=== PATIENT | female | born 1945 | race Caucasian/White ===

== ENCOUNTER 2016-09-21 08:08 | Emergency (ER) | payer MEDICARE ==
[~2016-09-21] VITALS: Ht 160 cm; Wt 46.0 kg
[2016-09-21] MEDS ORDERED: CHOL20002 PO (08:30)
[2016-09-21] MEDS ORDERED: OMEP-110 PO (08:30)
[2016-09-21] MEDS ORDERED: ASPI-496 PO (08:30)
[2016-09-21] MEDS ORDERED: SODIUM CHLORIDE 0.9% 1,000 ML IV ONE (08:49)
[2016-09-21] MEDS ORDERED: SODIUM CHLORIDE FLUSH 10ML SYR IVF ONE (09:00)
[2016-09-21] MEDS ORDERED: SODIUM CHLORIDE 0.9% 1,000ML IVBOLUS ONE (09:00)
[2016-09-21 09:40] LABS: BLOOD UREA NITROGEN 10 mg/dL (7-18)
[2016-09-21 09:43] LABS: ASPARTATE AMINO TRANSFERASE 18 U/L (15-37)
[2016-09-21 12:13] VITALS: BP 120/72
== END 2016-09-21 12:17 | disposition home or self-care (01) ==
LOC: ED 09:42
DX: R19.7 Diarrhea, unspecified (principal); R00.2 Palpitations; F17.210 Nicotine dependence, cigarettes, uncomplicated
CPT/HCPCS: 36415; 74020; 80053; 81003; 83690; 85025; 93005; 96360; 99285; J7030

== ENCOUNTER 2019-09-22 08:36 | Outpatient (CLI) | payer MEDICARE ==
[~2019-09-22 08:36] MED LIST: ASPI-496 PO; CHOL200052 PO; OMEP-110 PO
[2019-11-21] MEDS ORDERED: ALPR0.5T7 PO (16:13)
[2019-11-21] MEDS ORDERED: PRAV20TA2 PO (16:14)
[2019-11-21] MEDS ORDERED: SERT100T32 PO (16:14)
== END 2019-09-22 23:59 | disposition home or self-care (01) ==
LOC: CVU 08:36
PROVIDERS: ATTEND Internal Medicine Cardiovascular Disease
DX: I70.203 Unspecified atherosclerosis of native arteries of extremities, bilateral legs (principal); I65.23 Occlusion and stenosis of bilateral carotid arteries; R55 Syncope and collapse
CPT/HCPCS: 93922; 93978

== ENCOUNTER → 2019-09-28 | Outpatient (CLI) | payer MEDICARE ==
[~2019-09-28] MED LIST changes: +OMNIPAQUE 350 MG/ML, 100ML BOTTLE ONE
[2019-09-28 15:17] LABS: ALANINE AMINOTRANSFERASE 14 U/L (12-78); ALBUMIN 3.7 g/dL (3.4-5.0); ANION GAP 5 mmol/L (5-15); CALCIUM 8.9 mg/dL (8.5-10.1); CHLORIDE 103 mmol/L (98-107); CREATININE 0.99 mg/dL (0.55-1.02)
[2019-09-28 15:20] LABS: ALKALINE PHOSPHATASE 92 U/L (45-117); BILIRUBIN,TOTAL 0.3 mg/dL (0.2-1.0); CHOL/HDL RATIO 2.4; CHOLESTEROL, TOTAL 175 mg/dL (140-239); HDL CHOL % 41 % (28-40); HDL CHOLESTEROL (DIRECT) 72 mg/dL (40-60); LDL CHOLESTEROL,CALCULATED 79 mg/dL (54-169); LDL/HDL RATIO 1.1 (0.5-3.0); TOTAL PROTEIN 7.6 g/dL (6.4-8.2); TRIGLYCERIDES 122 mg/dL (50-200); VLDL CHOLESTEROL 24 mg/dL (0-25)
== END | disposition home or self-care (01) ==
LOC: CFH 12:51
PROVIDERS: ATTEND Surgery
DX: I65.23 Occlusion and stenosis of bilateral carotid arteries (principal); E78.2 Mixed hyperlipidemia; E78.5 Hyperlipidemia, unspecified; F33.41 Major depressive disorder, recurrent, in partial remission; F41.9 Anxiety disorder, unspecified; G47.00 Insomnia, unspecified; I77.9 Disorder of arteries and arterioles, unspecified; M81.8 Other osteoporosis without current pathological fracture; R55 Syncope and collapse; R63.6 Underweight; I73.9 Peripheral vascular disease, unspecified
CPT/HCPCS: 36415; 70496; 70498; 80053; 80061; 82565; Q9967

== ENCOUNTER → 2019-10-23 | Outpatient (CLI) | payer MEDICARE ==
[~2019-10-23] MED LIST changes: -OMNIPAQUE 350 MG/ML, 100ML BOTTLE ONE
== END | disposition home or self-care (01) ==
LOC: CFH 10:37
PROVIDERS: ATTEND Internal Medicine Cardiovascular Disease
DX: M81.0 Age-related osteoporosis without current pathological fracture (principal); I73.9 Peripheral vascular disease, unspecified; R63.6 Underweight; F17.200 Nicotine dependence, unspecified, uncomplicated
CPT/HCPCS: 77080; 93978

== ENCOUNTER → 2019-10-24 | Outpatient (CLI) | payer MEDICARE ==
[~2019-10-24] MED LIST changes: +OMNIPAQUE 350 MG/ML, 75ML BOTTLE ONE
== END | disposition home or self-care (01) ==
LOC: CFH 12:45
PROVIDERS: ATTEND Internal Medicine Cardiovascular Disease
DX: I65.23 Occlusion and stenosis of bilateral carotid arteries (principal); R55 Syncope and collapse; I73.9 Peripheral vascular disease, unspecified
CPT/HCPCS: 71260; Q9967

== ENCOUNTER 2019-12-28 06:34 | Observation (INO) | payer MEDICARE ==
[~2019-12-28] VITALS: Ht 160 cm; Wt 49.0 kg
[~2019-12-28 06:34] MED LIST changes: +ALPR0.5T7 PO; -OMNIPAQUE 350 MG/ML, 75ML BOTTLE ONE; +PRAV20TA2 PO; +SERT100T32 PO
[2019-12-28] MEDS ORDERED: SODIUM CHLORIDE 0.9% 1,000 ML IV SCH (07:01)
[2019-12-28] MEDS ORDERED: LOPE-114 PO (07:13)
[2019-12-28] MEDS ORDERED: IRON PO (07:13)
[2019-12-28] MEDS ORDERED: POTASSIUM PO (07:13)
[2019-12-28] MEDS ORDERED: NAPR220C2 PO (07:13)
[2019-12-28] MEDS ORDERED: CALCIUM PO (07:13)
[2019-12-28] MEDS ORDERED: ZINC PO (07:13)
[2019-12-28 07:26] VITALS: BP 115/53
[2019-12-28] MEDS ORDERED: CEFAZOLIN PMX 1GM/50ML 50 ML IVPB ONE (07:30)
[2019-12-28] MEDS ORDERED: PLEASE ENTER HEIGHT AND WEIGHT MC SCH (07:30)
[2019-12-28 07:40] LABS: BASOPHILS # (AUTO) 0.04 x10^3/uL (0-0.1); BASOPHILS % (AUTO) 1 % (0-1); EOSINOPHILS # (AUTO) 0.16 x10^3/uL (0-0.4); EOSINOPHILS % (AUTO) 3 % (1-7); LYMPHOCYTES # (AUTO) 1.11 x10^3/uL (1-3.4); LYMPHOCYTES % (AUTO) 23 % (22-44); MD NO; MEAN CORPUSCULAR HEMOGLOBIN 29.7 pg (27.0-34.8); MEAN CORPUSCULAR HGB CONC 32.9 g/dL (32.4-35.8); MEAN CORPUSCULAR VOLUME 90.3 fL (80-100); MONOCYTES # (AUTO) 0.46 x10^3/uL (0.2-0.8); MONOCYTES % (AUTO) 10 % (2-9); NEUTROPHILS # (AUTO) 3.02 x10^3/uL (1.8-6.8); NEUTROPHILS % (AUTO) 63 % (42-75); PLATELET COUNT 195 x10^3/uL (130-400); RED BLOOD COUNT 3.98 x10^6/uL (3.82-5.3); RED CELL DISTRIBUTION WIDTH 15.8 % (9.6-15.2)
[2019-12-28] MEDS ORDERED: FENTANYL PF 100 MCG/2ML ONE (07:44)
[2019-12-28] MEDS ORDERED: CEFAZOLIN PMX 1GM/50ML 50 ML ONE (07:44)
[2019-12-28] MEDS ORDERED: LIDOCAINE 2%, 20ML ONE (07:44)
[2019-12-28] MEDS ORDERED: CEFAZOLIN 1,000 MG ONE (07:44)
[2019-12-28] MEDS ORDERED: MIDAZOLAM 1 MG/ML, 5ML ONE (07:44)
[2019-12-28 07:49] LABS: ANION GAP 6 mmol/L (5-15); CALCIUM 9.6 mg/dL (8.5-10.1); CHLORIDE 112 mmol/L (98-107)
[2019-12-28] MEDS ORDERED: LIDOCAINE-MPF 1%, 5ML ONE (08:40)
[2019-12-28] MEDS ORDERED: LOPERAMIDE 2 MG CAPSULE PO PRN (09:00)
[2019-12-28] MEDS ORDERED: HOLD MEDICATION MC PRN (09:00)
[2019-12-28] MEDS: OMEPRAZOLE 20 MG CAPSULE.DR PO SCH (09:42)
[2019-12-28] MEDS: SERTRALINE 100MG TABLET PO SCH ×2 (09:42→21:55)
[2019-12-28] MEDS: ASPIRIN 81 MG TABLET EC PO SCH (09:42)
[2019-12-28] MEDS: SODIUM CHLORIDE FLUSH 10ML SYR IVF SCH ×2 (09:43→21:55)
[2019-12-28 12:46] VITALS: BP 123/65
[2019-12-28] MEDS: ACETAMINOPHEN 325 MG TABLET PO PRN ×2 (16:04→21:59)
[2019-12-28] MEDS: CEFAZOLIN PMX 1GM/50ML 50 ML IVPB SCH (16:05)
[2019-12-28 18:46] VITALS: BP 112/59
[2019-12-28] MEDS ORDERED: PRAVASTATIN 20 MG TABLET PO SCH (21:00)
[2019-12-29] MEDS: CEFAZOLIN PMX 1GM/50ML 50 ML IVPB SCH (01:02)
[2019-12-29 01:05] VITALS: BP 107/60
[2019-12-29] MEDS: OMEPRAZOLE 20 MG CAPSULE.DR PO SCH (05:49)
[2019-12-29 07:44] VITALS: BP 118/64
[2019-12-29] MEDS ORDERED: ACET325T26 PO (08:25)
[2019-12-29] MEDS: ASPIRIN 81 MG TABLET EC PO SCH (08:36)
[2019-12-29] MEDS: SERTRALINE 100MG TABLET PO SCH (08:37)
[2019-12-29] MEDS: SODIUM CHLORIDE FLUSH 10ML SYR IVF SCH (08:37)
== END 2019-12-29 09:45 | disposition home or self-care (01) ==
LOC: CACL 06:34 → 5SO 08:49 → CACL 09:24 → DCLOUNGE 12-29 09:33
PROVIDERS: ADMIT Internal Medicine Cardiovascular Disease; ATTEND Internal Medicine Cardiovascular Disease
DX: I49.5 Sick sinus syndrome (principal); I65.23 Occlusion and stenosis of bilateral carotid arteries; K21.9 Gastro-esophageal reflux disease without esophagitis; R55 Syncope and collapse; F17.200 Nicotine dependence, unspecified, uncomplicated; R91.1 Solitary pulmonary nodule; H26.9 Unspecified cataract; E78.2 Mixed hyperlipidemia; F32.9 Major depressive disorder, single episode, unspecified; Z79.82 Long term (current) use of aspirin; Z79.899 Other long term (current) drug therapy
CPT/HCPCS: 33208; 33286; 36415; 71045; 80048; 85025; 96365; 96366; 99156; C1779; C1785; C1892; G0378; J0690; J2250; J3010; J3490